=== PATIENT | male | born 1975 | race African-American/Black ===

== ENCOUNTER 2017-06-14 20:51 | Emergency (ER) | payer SELFPAY ==
[2017-06-14] MEDS ORDERED: Ketorolac Tromethamine 30 MG/ML VIAL ONE (21:44)
--- NOTE | 2017-06-14 21:56 | RAD ---
LEFT HAND THREE VIEWS: 06/14/17 HISTORY: Injury, left hand pain. FINDINGS/IMPRESSION: There is a mildly angulated fracture involving the neck of the fifth metacarpal. POS: KELLEY
--- NOTE | 2017-06-14 22:00 | RAD ---
LEFT WRIST THREE VIEWS: 06/14/17 HISTORY: Injury left wrist and hand pain. FINDINGS/IMPRESSION: There is a mildly angulated fracture involving the neck of the fifth metacarpal. No fracture or dislocation is seen in the bones of the wrist. POS: ALAYNA
== END 2017-06-14 22:25 | disposition home or self-care (01) ==
LOC: ERS 20:51
DX: S62.337A Displaced fracture of neck of fifth metacarpal bone, left hand, initial encounter for closed fracture (principal); F17.210 Nicotine dependence, cigarettes, uncomplicated; F41.9 Anxiety disorder, unspecified; W22.8XXA Striking against or struck by other objects, initial encounter
CPT/HCPCS: 29125; 96372; J1885

== ENCOUNTER 2017-08-23 10:46 | Emergency (ER) | payer SELFPAY ==
[2017-08-23] MEDS ORDERED: predniSONE 20 MG TAB ONE (12:25)
[2017-08-23] MEDS ORDERED: Albuterol Sulfate 2.5 mg/0.5 ml Neb ONE (12:33)
[2017-08-23] MEDS ORDERED: Albuterol Sulfate 1.25 MG/3 ML NEB ONE (12:33)
== END 2017-08-23 13:20 | disposition home or self-care (01) ==
LOC: ERS 10:46
DX: J45.901 Unspecified asthma with (acute) exacerbation (principal); J11.1 Influenza due to unidentified influenza virus with other respiratory manifestations; F41.9 Anxiety disorder, unspecified; F17.210 Nicotine dependence, cigarettes, uncomplicated
CPT/HCPCS: 94640; 99406; J7506; J7611

== ENCOUNTER 2017-09-12 23:39 | Emergency (ER) | payer SELFPAY ==
[2017-09-13 01:00] LABS: ALT (SGPT) 17 U/L (8-55); AST (SGOT) 20 U/L (5-34); Albumin 3.8 g/dL (3.5-5.0); Alkaline Phosphatase 59 U/L (40-150); Anion Gap 14 mmol/L (10-20); BUN (Urea Nitrogen) 17 mg/dL (8.9-20.6); Bilirubin, Total 0.3 mg/dL (0.2-1.2); Calc. Creatinine Clearance 0 mL/min (70-130); Calcium 9.7 mg/dL (7.8-10.44); Carbon Dioxide 27 mmol/L (22-29); Chloride 102 mmol/L (98-107); Estimated GFR-MDRD 78; Globulin 3.6 g/dL (2.4-3.5); Glucose 152 mg/dL (70-105); Potassium 3.9 mmol/L (3.5-5.1); Protein, Total 7.4 g/dL (6.0-8.3); Sodium 139 mmol/L (136-145)
[2017-09-13 01:03] LABS: Eosinophils 1 % (0-10); Hemoglobin 15.7 g/dL (14.0-18.0); Lymphocytes 69 % (21-51); MDiff Complete? YES; Mean Corpuscular HGB CONC 32.5 g/dL (32.0-36.0); Mean Corpuscular Hemoglobin 29.5 pg (27.0-31.0); Mean Corpuscular Volume 90.7 fl (80.0-94.0); Mean Platelet Volume 8.5 fL (7.4-10.4); Monocytes 6 % (0-10); Neutrophil 22 % (42-75); PLT Morphology Comment Appears Adequate; Platelet Count 288 thou/uL (130-400); RBC Distribution Width 11.5 % (11.5-14.5); Reactive Lymphocytes 1 % (0-10); Red Blood Cell (RBC) Count 5.34 mill/uL (4.70-6.10); White Blood Cell (WBC) Count 6.8 thou/uL (4.8-10.8)
== END 2017-09-13 01:18 | disposition left against medical advice (07) ==
LOC: ERS 23:39
DX: Z53.21 Procedure and treatment not carried out due to patient leaving prior to being seen by health care provider (principal)
CPT/HCPCS: 36415; 80053; 85025; 93005

== ENCOUNTER 2018-05-25 00:24 | Emergency (ER) | payer SELFPAY | END 2018-05-25 01:13 | disposition home or self-care (01) | LOC: ERS 00:24 | DX: K40.90 Unilateral inguinal hernia, without obstruction or gangrene, not specified as recurrent (principal); F14.10 Cocaine abuse, uncomplicated; F41.9 Anxiety disorder, unspecified; F17.210 Nicotine dependence, cigarettes, uncomplicated | CPT/HCPCS: 99283 ==